=== PATIENT | female | born 1960 | race Caucasian/White ===

== ENCOUNTER → 2018-03-13 | Outpatient (CLI) | payer MEDICARE, MEDICAID ==
[~2018-03-13] MED LIST: LIDOCAINE-MPF 1%, 5ML ONE
== END | disposition home or self-care (01) ==
LOC: RAD 08:39
PROVIDERS: ATTEND Family Medicine
DX: E04.2 Nontoxic multinodular goiter (principal)
CPT/HCPCS: 10022; 76942; 88172; 88173

== ENCOUNTER → 2018-04-04 | Outpatient (CLI) | payer MEDICARE, MEDICAID ==
[~2018-04-04] MED LIST changes: +GADOBUTROL 7.5 MMOL/7.5 ML PFS ONE; -LIDOCAINE-MPF 1%, 5ML ONE
== END | disposition home or self-care (01) ==
LOC: CFH 12:48
PROVIDERS: ATTEND Family Medicine
DX: G43.711 Chronic migraine without aura, intractable, with status migrainosus (principal)
CPT/HCPCS: 70553; A9585

== ENCOUNTER 2018-06-15 14:15 | Emergency (ER) | payer MEDICARE, MEDICAID ==
[~2018-06-15] VITALS: Ht 175.3 cm; Wt 90.0 kg
[2018-06-15 14:20] VITALS: BP 116/78
--- NOTE | 2018-06-15 14:35 | NUR ---
PT TO ROOM FROM TRIAGE, PT STATES SHE HAS LACERATION TO R THUMB A FEW WEEKS AGO WITH STITCHES THAT WERE REMOVED, BUT THAT LAC IS NOT HEALING A SWOLLEN. NAD, VSS. CALL LIGHT WITHIN REACH
--- NOTE | 2018-06-15 15:21 | NUR ---
GIVEN ALL DC INSTRUCTION PT UNDERTOOD PT WILL FOLLOW UP WITH PCP FOR HG A1C PT UNDERSTOOD
== END 2018-06-15 15:23 | disposition home or self-care (01) ==
LOC: ED 15:03
DX: S61.012D Laceration without foreign body of left thumb without damage to nail, subsequent encounter (principal)
CPT/HCPCS: 99281

== ENCOUNTER 2019-01-30 15:43 | Emergency (ER) | payer MEDICARE, MEDICAID ==
[~2019-01-30] VITALS: Ht 172.7 cm; Wt 88.6 kg
[2019-01-30] MEDS ORDERED: SODIUM CHLORIDE FLUSH 10ML SYR IVF ONE ×2 (16:30→18:00)
--- NOTE | 2019-01-30 16:44 | NUR ---
MANAGER RESOURCE: PT TO ROOM FROM [facility] MUNOZ
--- NOTE | 2019-01-30 17:01 | NUR ---
TASK RN: DR SCRUGGS AT BEDSIDE. PT ASSESSMENT, POC REVIEWED. PT WITH EPIGASTRIC RUQ ABD PAIN. ORDERS REC'D. CALL LIGHT W/I REACH
[2019-01-30] MEDS ORDERED: MAALOX/HYOSCYAMINE/LIDOCAINE 45 ML BTL ONE (17:03)
[2019-01-30] MEDS ORDERED: ONDANSETRON ODT 4 MG ONE (17:07)
[2019-01-30] MEDS ORDERED: FAMOTIDINE 20 MG/2 ML ONE (17:14)
[2019-01-30 17:19] LABS: MEAN CORPUSCULAR HEMOGLOBIN 30.5 pg (27.0-34.8); MEAN CORPUSCULAR HGB CONC 33.1 g/dL (32.4-35.8); MEAN CORPUSCULAR VOLUME 92.3 fL (80-100); MEAN PLATELET VOLUME 8.9 fL (7.4-10.4); PLATELET COUNT 276 x10^3/uL (130-400); RED BLOOD COUNT 5.06 x10^6/uL (3.82-5.3); RED CELL DISTRIBUTION WIDTH 13.3 % (9.6-15.2)
[2019-01-30 17:25] LABS: MICROSCOPIC AUTO
[2019-01-30 17:27] LABS: CULTURE INDICATED? NO
[2019-01-30 17:29] LABS: ALANINE AMINOTRANSFERASE 22 U/L (12-78); ALBUMIN 4.2 g/dL (3.4-5.0); ANION GAP 8 mmol/L (5-15); CALCIUM 9.9 mg/dL (8.5-10.1); CHLORIDE 106 mmol/L (98-107); CREATININE 0.98 mg/dL (0.55-1.02)
[2019-01-30] MEDS ORDERED: FAMOTIDINE 20 MG/2 ML IV ONE (17:30)
[2019-01-30] MEDS ORDERED: MAALOX/HYOSCYAMINE/LIDOCAINE 45 ML BTL PO ONE (17:30)
[2019-01-30] MEDS ORDERED: ONDANSETRON 2MG/ML, 2ML IVPush ONE (17:30)
[2019-01-30] MEDS ORDERED: ONDANSETRON ODT 4 MG PO ONE (17:30)
[2019-01-30] MEDS ORDERED: HYDROmorphone 2 MG/ML, 1ML IVPush PRN (17:30)
[2019-01-30 17:31] LABS: ALKALINE PHOSPHATASE 99 U/L (45-117); BILIRUBIN,TOTAL 0.5 mg/dL (0.2-1.0); TOTAL PROTEIN 8.1 g/dL (6.4-8.2)
--- NOTE | 2019-01-30 17:41 | NUR ---
Pt in US
[2019-01-30 17:54] LABS: MD YES
[2019-01-30 17:57] LABS: <PLATELET ESTIMATE> ADEQUATE; <PLT MORPHOLOGY> NORMAL PLT MORPH; BAND#(MANUAL) 0.08 x10^3/uL; BANDS%(MANUAL) 1 % (0-7); LYMPH#(MANUAL) 0.69 x10^3/uL (1-3.4); LYMPHS% (MANUAL) 9 % (22-44); MONOS#(MANUAL) 0.08 x10^3/uL (0.3-2.7); MONOS% (MANUAL) 1 % (2-9); SEG#(MANUAL) 6.85 x10^3/uL (1.8-6.8); SEGS% (MANUAL) 89 % (42-75)
[2019-01-30 18:30] VITALS: BP 111/65
--- NOTE | 2019-01-30 18:41 | NUR ---
Pt returned from scan in NAD, awaiting rads read & dispo
--- NOTE | 2019-01-30 19:18 | NUR ---
REPORT FROM LOIS BARTH. PT WAITING FOR RE EVALUATION. CALL LIGHT IN REACH
== END 2019-01-30 20:49 | disposition home or self-care (01) ==
LOC: ED 20:15
DX: K29.00 Acute gastritis without bleeding (principal)
CPT/HCPCS: 36415; 76700; 80053; 81001; 83690; 85025; 93005; 96374; 99284; J3490; Q0162

== ENCOUNTER → 2020-05-04 | Outpatient (CLI) | payer MEDICARE, MEDICAID | END | disposition home or self-care (01) | LOC: CVU 08:29 | PROVIDERS: ATTEND Internal Medicine Cardiovascular Disease | DX: I34.1 Nonrheumatic mitral (valve) prolapse (principal); R00.2 Palpitations; R42 Dizziness and giddiness | CPT/HCPCS: 93306; 93356 ==